=== PATIENT | male | born 1980 | race Caucasian/White ===

== ENCOUNTER 2022-08-31 12:49 | Emergency (ER) | payer BC, SELFPAY ==
[2022-08-31 14:16] VITALS: BP 149/104; PULSE 62; RESP 16; TEMP 36.6; O2SAT 98; BMI 27.1
--- NOTE | 2022-08-31 14:20 | CRLHL7_ITS ---
For Patients: As a result of the Cures Act, medical imaging exams and procedure reports are released immediately into your electronic medical record. You may view this report before your referring provider. If you have questions, please contact your health care provider. Indication: Injury Technique: Three views right wrist Comparison: No comparison Findings: Normal alignment. Triquetral fracture visualized. Soft tissue swelling present. There is otherwise normal alignment. Dictated by Tonia Vidales MD @ 08/31/2022 3:16:21 PM (Electronically Signed)
--- NOTE | 2022-08-31 16:11 | ED.GENADULT ---
HPI - General Adult General Time Seen by Provider: 16:11 Date Seen: 08/31/22 Chief complaint: Extremity Pain/Injury, Upper Stated complaint: Fall/right wrist injury Time Seen by Provider: 08/31/22 13:58 Source: patient Mode of arrival: ambulatory Limitations: no limitations History of Present Illness HPI narrative: Patient is a 41 white male with a chief complaint of right wrist pain since no burning a couple days ago. He fell on his wrist. He wants to make sure it is not fractured before returns to work. He works at [employer]. Patient has not had a great amount of pain mild dorsal soft tissue swelling over his wrist no open wounds noted Related Data Home Medications Medication Instructions Recorded Confirmed atenolol 50 mg tablet mg 08/31/22 hydrochlorothiazide 25 mg tablet mg 08/31/22 lisinopril 20 mg tablet mg 08/31/22 Allergies Allergy/AdvReac Type Severity Reaction Status Date / Time No Known Allergies Allergy Verified 08/31/22 14:15 Review of Systems Narrative: History of shoulder problems history of shoulder surgery, hypertension PFSH PFSH Social History Smoking Status: Smoker, status unknown How often do you have a drink containing alcohol: never How often do you have six or more drinks on one occasion: Never AUDIT-C Alcohol total score: 0 Exam Narrative: Exam Narrative: Right wrist shows fairly full range of motion, some mild dorsal tenderness, mild elevated blood pressure noted, no snuffbox tenderness. Distal CMS is intact Const: Vital Signs, click to edit/add: Vital Signs - 24 hr 08/31/22 14:16 Temperature 97.8 F Pulse Rate [Pulse Oximeter] 62 Respiratory Rate 16 Blood Pressure [Ri ght Upper Arm] 149/104 H Pulse Oximetry 98 Oxygen Delivery Me thod Room Air Course Vital Signs Vital signs: Initial Vital Signs Temperature 97.8 F 08/31/22 14:16 Temperature Source Temporal Artery Scan 08/31/22 14:16 Pulse Rate 62 08/31/22 14:16 Pulse Rhythm 08/31/22 14:16 Pulse Strength 3+ Normal 08/31/22 14:16 Respiratory Rate 16 08/31/22 14:16 Blood Pressure 149/104 H 08/31/22 14:16 Blood Pressure Mean 119 08/31/22 14:16 Blood Pressure Position Sitting 08/31/22 14:16 Pulse Oximetry 98 08/31/22 14:16 Oxygen Delivery Method 08/31/22 14:16 Vital Signs Temperature 97.8 F 08/31/22 14:16 Pulse Rate 62 08/31/22 14:16 Respiratory Rate 16 08/31/22 14:16 Blood Pressure 149/104 H 08/31/22 14:16 Pulse Oximetry 98 08/31/22 14:16 Oxygen Delivery Method 08/31/22 14:16 Temperature 97.8 F 08/31/22 14:16 Pulse Rate 62 08/31/22 14:16 Respiratory Rate 16 08/31/22 14:16 Blood Pressure 149/104 H 08/31/22 14:16 Pulse Oximetry 98 08/31/22 14:16 Oxygen Delivery Method 08/31/22 14:16 Medical Decision Making MDM Narrative Medical decision making narrative: Patient has an x-ray that by my read shows a wrist fracture he has got a carpal bone fracture I believe his triquetral. Procedure: A thumb spica short-arm splint was placed by myself, patient tolerated this well. Recommend Ortho follow-up in 3-5 days, splint precautions, light activity with the arm, Advil or Tylenol as needed Discharge Plan Discharge Clinical Impression: Fracture of wrist Patient Disposition: Home, Self-Care Condition: Improved Additional Instructions: Splint precautions, Advil as needed, orthopedic followup in 3-5 days, keep the splint on and elevate the arm, light use of the splint arm. Please give orthopedic number Activity Level: Light activity Discharge Diet: Regular Prescriptions: No Action lisinopril 20 mg tablet Label Comments: TAKE 1 TABLET BY MOUTH EVERY DAY hydrochlorothiazide 25 mg tablet Label Comments: TAKE 1 TABLET BY MOUTH EVERY DAY atenolol 50 mg tablet Label Comments: TAKE 1 TABLET BY MOUTH EVERY DAY Follow Up/Referrals: Provider,Not a Local [Primary Care Provider] - Stand Alone Forms: Dada Info Instructions
== END 2022-08-31 16:19 | disposition home or self-care (01) ==
PROVIDERS: Emergency Provider Family Medicine
DX: S62.101A Fracture of unspecified carpal bone, right wrist, initial encounter for closed fracture (principal); W19.XXXA Unspecified fall, initial encounter; Y93.9 Activity, unspecified; Y92.9 Unspecified place or not applicable; Y99.9 Unspecified external cause status
CPT/HCPCS: 29125; 73110; 99283